=== PATIENT | male | born 1975 | race Caucasian/White ===

== ENCOUNTER 2017-11-23 16:45 | Emergency (ER) | payer MEDICAID, SELFPAY ==
[2017-11-23 16:46] VITALS: BP 141/93; PULSE 95; RESP 16; TEMP 36.8; O2SAT 99; BMI 25.1
--- NOTE | 2017-11-23 17:44 | EKG12_ITS ---
Test Reason : CP Blood Pressure : / mmHG Vent. Rate : 092 BPM Atrial Rate : 092 BPM P-R Int : 148 ms QRS Dur : 084 ms QT Int : 350 ms P-R-T Axes : 076 066 066 degrees QTc Int : 432 ms Normal sinus rhythm Normal ECG Confirmed by GABBIE LASSITER, JARON ([id number]), news assignment editor ELISHA VERNON ([id number]) on 11/27/2017 1:10:58 PM Referred By: DANNY/ROSALINO Confirmed By:JARON CARTWRIGHT MD
[2017-11-23] MEDS: Ipratropium/Albuterol Sulfate 3 ML AMPUL.NEB INHALATION (17:53)
[2017-11-23 17:55] VITALS: PULSE 90; RESP 16; O2SAT 98
[2017-11-23 18:18] LABS: Absolute Lymphocyte Count 2.37 X10^3/ul (0.83-4.51); Absolute Neutrophil Count 4.8 X10^3/uL (2.0-7.7); Basophil# 0.02 X10^3/uL; Basophil% 0.2 % (0-1); Eosinophils% 1.2 % (0-5); Hematocrit 43.4 % (40-54); Hemoglobin 14.5 g/dl (13.0-16.5); Lymphocyte # 2.37 X10^3/ul (4.0); Mean Corp Hgb Conc 33.4 g/gl (32-36); Mean Corpuscular Volume 98.6 fL (80-94); Mean Platelet Vol. 10.5 fl (6.2-12.0); Neutrophil # 4.77 X10^3/uL (2.7-7.7); Neutrophil % 58.5 % (47-70); Platelet Count 176 K/mm3 (150-450); RBC Distribution Width CV 13.6 % (11.6-14.6); White Blood Count 8.2 K/mm3 (4.4-11.0)
--- NOTE | 2017-11-23 18:20 | RAD_ITS ---
STUDY: X-RAY CHEST REASON FOR EXAM: Male, 42 years old. Chest pain TECHNIQUE: Frontal and lateral views of the chest COMPARISON: None. FINDINGS: The lungs are clear. There are no pleural effusions. There is no pneumothorax. The heart is normal in size. The visualized osseous structures are within normal limits. RAD/Chest PA and Lateral IMPRESSION: No acute thoracic pathology. Electronically Signed: Vidal Villagran, at 18:39 EDT Tel , Service support ,
[2017-11-23 18:21] VITALS: O2SAT 98
[2017-11-23 18:24] LABS: POSITIVE COUNT NO; POSITIVE DIFFERENTIAL NO; POSITIVE MORPHOLOGY NO
[2017-11-23 18:35] LABS: Anion Gap 6 (5-15); BUN 8 mg/dL (7-18); BUN/Creat Ratio 10.2 RATIO (10-20); Calcium,Total 9.3 mg/dL (8.5-10.1); Chloride 106 mmol/L (98-107); Creatinine, Serum 0.79 mg/dL (0.70-1.30); EST Glomerular Filtration Rate 114 mL/min (>60); Est Glom Filt Rate - Afr Amer 138 mL/min (>60); Estimated Creatinine Clearance 128.41 ml/min; Glucose 95 mg/dL (74-106); Potassium 4.3 mmol/L (3.5-5.1); Sodium Level 137 mmol/L (136-145)
--- NOTE | 2017-11-23 18:47 | ED.VISSUMM ---
- ER Visit Summary Date of Service: 11/23/17 Chief Complaint: Chest pain History of Present Illness: The patient is a 42 M who presents with chest pain. This is been occurring intermittently for the past 2 weeks. It began after he sat off flea bombs in his house and accidentally inhaled some of the fumes. He states afterwards his tongue felt weird. He had some tingling on his tongue. Since that time he has had intermittent episodes of chest heaviness. He states he feels like there is a sandbag sitting on her chest chest. He is a smoker. He also reports a cough and intermittently feeling mildly short of breath. Physical Examination: Afebrile vitals are unremarkable Moist mucous membranes Heart regular rate and rhythm No respiratory distress he does have some scattered expiratory wheezing Abdomen soft Extremities nontender without edema Alert Test Results: EKG shows sinus rhythm at a rate of 92. CBC BMP troponin all normal. Chest x-ray shows no acute pathology. Emergency Department Course and Treatment: Patient was given a DuoNeb aerosol here. His workup is unremarkable. I do not believe this is due to cardiac ischemia. This is likely due to bronchospasm and possibly component of pneumonitis as well. He was advised on supportive care. He will follow-up as needed as an outpatient. He was given a new albuterol inhaler. He was discharged. Treatment Plan: [] Disposition: Discharge Impression: Chest pain This note was generated with [employer] dictation software. It may contain incorrect words, spelling, and punctuation that were not noted in review of the chart prior to signing ED Disposition - Plan for ED Patient: Chief Complaint: Chest Pain Referrals: Care Physician,No Primary [Primary Care Provider] -
--- NOTE | 2017-11-23 18:49 | ED.DEP ---
ED Disposition - Plan for ED Patient: Chief Complaint: Chest Pain Instructions: ED Chest Pain NonCardiac Prescriptions: Albuterol Inhaler [Ventolin Hfa] 1 - 2 puff INHALATION Q4H PRN PRN #1 inhaler PRN Reason: Wheezing Referrals: Care Physician,No Primary [Primary Care Provider] -
[2017-11-23 19:12] VITALS: BP 139/89; PULSE 92; RESP 20
[2017-11-23 19:13] VITALS: BP 139/89; PULSE 92; RESP 20
== END 2017-11-23 19:14 | disposition home or self-care (01) ==
LOC: ED 17:56
PROVIDERS: Emergency Provider Emergency Medicine
DX: R07.9 Chest pain, unspecified (principal); F17.200 Nicotine dependence, unspecified, uncomplicated
CPT/HCPCS: 71046; 80048; 84484; 85025; 93005; 94640; 99285; J7030

== ENCOUNTER 2017-11-28 10:07 | Emergency (ER) | payer MEDICAID, SELFPAY ==
[2017-11-28 10:09] VITALS: BP 126/92; PULSE 74; RESP 16; TEMP 36.7; O2SAT 99; BMI 23.8
--- NOTE | 2017-11-28 10:31 | ED.DCSUM_ITS ---
- ER Visit Summary Date of Service: 11/28/17 Chief Complaint: Work release History of Present Illness: The patient is a 42 M who presents for medical clearance to return to work. Patient was seen here actually 2 weeks ago for dizziness and fatigue. Patient states that he released flea bombs in his house and accidentally inhaled some of that. Patient states she has been using his inhalers which have helped. Patient states he still has some intermittent generalized dizziness and fatigue. Patient states that he feels better today. Patient denies any shortness of breath. Patient still admits to occasional cough. Patient denies any sputum. 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 Physical Examination: Vital signs are stable. Patient is afebrile. Patient is in no acute distress. Oral mucosa is pink and moist. Neck is supple. Trachea is midline. There is no JVD noted. Heart was regular rate and rhythm. Lungs are clear and equal bilaterally. There is good respiratory effort noted. Abdomen is soft nontender. Cranial nerves II through XII are intact. There are no focal motor or sensory deficits noted. The remaining physical exam is within normal limits. Emergency Department Course and Treatment: Patient is medically cleared to return to work today. Patient was given a note for this. Patient was instructed to follow-up with a primary care physician in 7-10 days. Patient understood and was agreeable with the plan. All questions were answered. Disposition: Discharge home Impression: Return to work evaluation This note was generated with [employer] dictation software. It may contain incorrect words, spelling, and punctuation that were not noted in review of the chart prior to signing ED Disposition - Plan for ED Patient: Disposition: Home or Assisted Living Chief Complaint: General Illness Diagnosis: Return to work evaluation Instructions: ED Work Release Form Referrals: Care Physician,No Primary [Primary Care Provider] - Stephen Alonzo III, MD [STAFF PHYSICIAN] - Additional Instructions: You are able to return to work today.
== END 2017-11-28 10:46 | disposition home or self-care (01) ==
PROVIDERS: Emergency Provider Emergency Medicine
DX: R42 Dizziness and giddiness (principal); R53.83 Other fatigue; Z02.89 Encounter for other administrative examinations; Z72.0 Tobacco use
CPT/HCPCS: 99282

== ENCOUNTER → 2018-02-01 16:13 | Outpatient (CLI) | payer MEDICAID, SELFPAY | PROVIDERS: Referring Provider Physician Assistant; Visit Provider Physician Assistant | DX: J02.9 Acute pharyngitis, unspecified (principal) | CPT/HCPCS: 87081 ==

== ENCOUNTER 2019-11-14 08:32 | Emergency (ER) | payer MEDICAID, SELFPAY ==
[2019-11-14 08:33] VITALS: BP 141/97; PULSE 70; RESP 16; TEMP 36.3; O2SAT 100; BMI 21.6
--- NOTE | 2019-11-14 08:52 | ED.VIS.GEN ---
History of Present Illness Chief Complaint: Complaint Informant: Patient Narrative: 44-year-old male with no significant past medical history presents with concern for hematuria. States this began approximately a year and a half ago. States it is been intermittent over this period of time. States that 3 months ago he was seen at an urgent care and placed on antibiotics which did briefly resolve this issue. States he presents today because he has been passing clots over the past 48 hours. Patient also has pain in his lower abdomen. Denies any fever, chills, nausea, vomiting, penile discharge. No concern for STDs. Past Medical History - Allergies and Home Meds Allergies/Adverse Reactions: Allergies acetaminophen [From Vicodin] Adverse Reaction (Verified 11/14/19 08:35) Other hydrocodone [From Vicodin] Adverse Reaction (Verified 11/14/19 08:35) Other Primary Care Physician: Care Physician,No Primary [Primary Care Provider] - Past Medical History: None Surgical History: no surgical history Lives: Alone Smoking Status: Current every day smoker Alcohol: None Drugs: None Review of Systems General: Denies: Chills, Fever, Sweats Eyes: Denies: Visual changes - bilaterally, Diplopia ENT: Denies: Rhinorrhea, Sore throat Cardiovascular: Denies: Chest pain, Palpitations Respiratory: Denies: Dyspnea, Cough, Dyspnea on exertion Gastrointestinal: Denies: Abdominal pain, Nausea, Vomiting, Diarrhea, Melena, Hematochezia Genitourinary: Reports: Hematuria. Denies: Dysuria, Frequency Musculoskeletal: Denies: Back pain, Extremity Pain Skin: Denies: Rash, Wounds Neurological: Denies: Headache, Weakness, Numbness Physical Exam Vital Signs/Narrative: Vital Signs Temp Pulse Resp BP Pulse Ox 11/14/19 08:33 97.3 F L 70 16 141/97 H 100 Inital Vital Signs reviewed: Yes General: Well nourished, Well developed, No Acute Distress Head: Normocephalic, Atraumatic Eyes: Perrl, EOMI ENT: Moist mucous membranes, No rhinorrhea Neck: Supple, Nontender Cardiovascular: Regular rate, Regular rhythm, No murmurs Respiratory: No distress, CTA bilaterally, Chest nontender Abdomen: Soft, Nontender, Nondistended, Normal bowel sounds Back: Nontender, Normal Inspection Extremities: Nontender, No edema Skin: Normal color, No rash Neurological: Alert, Oriented x3, Cranial nerves II-XII grossly intact, Normal Strength, Normal Sensation Psychological: Normal affect, Normal Mood Diagnostic/Tx/Re-eval Laboratory Data 11/14/19 08:30 Urine Color Yellow Urine Clarity Sl. Cloudy Urine pH 7.0 Ur Specific [place] 1.010 Urine Protein 30 H Urine Glucose (UA) Normal Urine Ketones Negative Urine Occult Blood 250 H Urine Nitrite Positive H Urine Bilirubin Negative Urine Urobilinogen Normal Ur Leukocyte Esterase 25 H Urine RBC 25-50 SEEN Urine WBC 0-5 SEEN Ur Squamous Epith Cells 0-5 SEEN Urine Bacteria 1+ Urine Mucus 0 SEEN - Medical Decision Making Patient appears well nontoxic. Vital signs within normal limits. Urine shows evidence of infection with microscopic hematuria. Patient will be given Keflex 4 times daily for the next 7 days. Urine sent for culture. Given urologic follow-up. Asked to return for new or worsening symptoms. Patient agreeable and discharged home in stable condition. ED Disposition - Plan for ED Patient: Disposition: Home or Assisted Living Diagnosis: Cystitis Instructions: ED CYSTITIS Male Adult Prescriptions: Cephalexin [Keflex] 500 mg PO Q6 #40 cap Transmission Status: Pending to [id number] Referrals: Mady Bermudez DO [STAFF PHYSICIAN] - Aron Ron MD [STAFF PHYSICIAN] - As soon as possible
[2019-11-14 09:04] LABS: Mucous, Urine 0 SEEN /hpf (<or=2+)
[2019-11-14 09:09] VITALS: BP 141/97; PULSE 70; RESP 16; TEMP 36.3; O2SAT 100
[2019-11-14 09:09] LABS: Color, Urine Yellow (Yellow); Glucose, Dipstick Normal (Normal); Ketone-Dipstick Negative (Negative); Leukocyte Esterase-Dipstick 25 /ul (Negative); Nitrite-Dipstick Positive (Negative); Occult Blood-Urine 250 /ul (Negative); Protein-Dipstick 30 mg/dl (Negative); Urine Bilirubin Dipstick Negative (Negative); Urine Clarity Sl. Cloudy (Clear); Urine Urobilinogen Normal (Normal)
[2019-11-14 09:15] LABS: Bacteria 1+ /hpf (None Seen); Red Blood Cells-Urine 25-50 SEEN /hpf (0-5); Squamous Epithelial Cells - UA 0-5 SEEN /hpf (0-5); White Blood Cells 0-5 SEEN /hpf (0-5)
[2019-11-14 09:37] VITALS: PULSE 78; RESP 16; O2SAT 97
== END 2019-11-14 09:42 | disposition home or self-care (01) ==
LOC: ED 09:29
PROVIDERS: Emergency Provider Emergency Medicine
DX: N30.90 Cystitis, unspecified without hematuria (principal); F17.200 Nicotine dependence, unspecified, uncomplicated
CPT/HCPCS: 81001; 99282

== ENCOUNTER 2020-05-12 12:33 | Emergency (ER) | payer MEDICAID, SELFPAY ==
[2020-05-12 12:34] VITALS: BP 131/80; PULSE 90; RESP 16; TEMP 36.1; O2SAT 98; BMI 23.0
[2020-05-12 13:01] LABS: Bacteria 0 SEEN /hpf (None Seen); Mucous, Urine 0 SEEN /hpf (<or=2+); Red Blood Cells-Urine 0 SEEN /hpf (0-5); Squamous Epithelial Cells - UA 0 SEEN /hpf (0-5); White Blood Cells 0 SEEN /hpf (0-5)
[2020-05-12 13:04] LABS: Absolute Lymphocyte Count 1.01 X10^3/uL (0.83-4.51); Absolute Neutrophil Count 4.5 X10^3/uL (2.0-7.7); Basophil# 0.04 X10^3/uL; Basophil% 0.6 % (0-1); Eosinophil# 0.08 X10^3/uL; Eosinophils% 1.2 % (0-5); Hematocrit 42.8 % (40-54); Hemoglobin 13.9 g/dL (13.0-16.5); Lymphocyte # 1.01 X10^3/ul (4.0); Lymphocyte % 15.4 % (19-41); Mean Corp Hgb Conc 32.5 g/dL (32-36); Mean Corpuscular Hgb 30.8 pg (27.0-32.0); Mean Corpuscular Volume 94.7 fL (80-94); Mean Platelet Vol. 9.3 fl (6.2-12.0); Monocyte# 0.95 X10^3/uL; Monocyte% 14.5 % (0-10); NRBC Flagged by Analyzer 0 % (0-5); Neutrophil # 4.47 X10^3/uL (2.7-7.7); Platelet Count 222 K/mm3 (150-450); RBC Distribution Width CV 12.5 % (11.6-14.6); RBC Distribution Width SD 43.6 fl (35.1-43.9); Red Blood Count 4.52 M/mm3 (4.6-6.2); White Blood Count 6.6 K/mm3 (4.4-11.0)
--- NOTE | 2020-05-12 13:05 | ED.VISSUMM ---
- ER Visit Summary Date of Service: 05/12/20 Chief Complaint: [Abdominal pain] History of Present Illness: The patient is a 44 M [presents the emergency department complaint of abdominal pain that started about 4 days ago. Patient states that he was at work pulling a heavy cart when he gave it again he felt the discomfort in his abdomen and tightness. Patient states the pains are getting worse last evening. He describes it as in his lower abdomen and currently only rates it about a 3 out of 10. Patient states the pain usually worse at night. He has had no fever other than he checked his temperature last night it was 100.0 but his told him that the batteries were low in the thermometer. Had no chills or sweats. No cough no COVID-19 exposures. He denies any blood in stool or black tarry stools. Denies any hematuria currently but he has had it in the past.] Patient states that he had some discoloration in his bellybutton that he was also concerned about. Physical Examination: [HEENT-PERRLA, EOMI. Cranial nerves II through XII grossly intact. TMs clear. Mucous membranes moist. No adenopathy. Cardiovascular-regular rate and rhythm without murmur or ectopy Lungs-clear to auscultation, chest wall stable without crepitus or subcu emphysema Abdomen-normoactive bowel sounds, soft. Patient has tenderness diffusely over the lower abdomen to the right lower quadrant, suprapubic region and left lower quadrant. No obvious hernias palpated. Extremities-intact ?4, normal range of motion, normal pulses, atraumatic] Test Results: [CBC with differential obtained was normal. Chemistries normal. Urinalysis normal. CT flank showed nothing acute. The appendix was visualized and was normal. There is no evidence of kidney stones. No hernias noted.] Emergency Department Course and Treatment: [IV line established on arrival.] Treatment Plan: [Advised use ibuprofen or Tylenol for discomfort. I suspect he likely has an abdominal wall strain. Patient will be referred to primary care physician refrigeration brazer/solderer for no doc for follow-up in 5 to 7 days. Patient does not want to file this under workman's comp because he is not sure if it is related.] Disposition: [Discharged home in stable condition] Impression: [Abdominal pain Abdominal wall strain] This note was generated with [employer] dictation software. It may contain incorrect words, spelling, and punctuation that were not noted in review of the chart prior to signing ED Disposition - Plan for ED Patient: Referrals: Care Physician,No Primary [Primary Care Provider] -
[2020-05-12 13:06] LABS: Color, Urine Yellow (Yellow); Glucose, Dipstick Normal (Normal); Ketone-Dipstick Negative (Negative); Leukocyte Esterase-Dipstick Negative /ul (Negative); Nitrite-Dipstick Negative (Negative); Occult Blood-Urine Negative /ul (Negative); Protein-Dipstick Negative (Negative); Urine Bilirubin Dipstick Negative (Negative); Urine Clarity Clear (Clear); Urine Urobilinogen Normal (Normal)
[2020-05-12 13:16] LABS: Anion Gap 5 (5-15); BUN 11 mg/dL (7-18); Calcium,Total 8.6 mg/dL (8.5-10.1); Chloride 106 mmol/L (98-107); Creatinine, Serum 0.92 mg/dL (0.70-1.30); EST Glomerular Filtration Rate 95 mL/min (>60); Est Glom Filt Rate - Afr Amer 115 mL/min (>60); Estimated Creatinine Clearance 107.34 ml/min; Glucose 88 mg/dL (74-106); Potassium 4.1 mmol/L (3.5-5.1); Sodium Level 139 mmol/L (136-145)
--- NOTE | 2020-05-12 14:08 | CT_ITS ---
STUDY: CT ABDOMEN AND PELVIS WITHOUT CONTRAST REASON FOR EXAM: Male, 44 years old. ABDOMINAL PAIN AFTER MOVING HEAVY OBJECT RADIATION DOSAGE (If Supplied By Facility): CTDIvol = ( 6.23 ) mGy, DLP = ( 337.54 ) mGycm TECHNIQUE: Transaxial images were obtained from the dome of the diaphragm to the symphysis pubis without oral contrast, and without intravenous contrast. Sagittal and coronal images were reconstructed. Individualized dose optimization techniques were used for this CT. COMPARISON: None. FINDINGS: The visualized lung bases are unremarkable. The visualized portions of the heart are within normal limits. Normal liver. Normal gallbladder and extrahepatic biliary system. Normal spleen. Normal pancreas. Normal bilateral adrenal glands. Normal right kidney. Normal left kidney. Normal visualized stomach. Normal small intestine. Normal colon. The appendix is visualized and appears normal. Mild scattered atherosclerosis. Normal inferior vena cava. Normal retroperitoneum. Normal urinary bladder. Normal abdominal wall. Normal osseous structures. CT/Abdomen/Pelvis without Cont IMPRESSION: 1. No hydronephrosis or urinary tract calcifications. Electronically Signed: Wesley Slade MD ([place]) at 14:33 EST , Service support ,
--- NOTE | 2020-05-12 14:37 | ED.DEP ---
ED Disposition - Plan for ED Patient: Instructions: ED Unknown Causes of Abdominal ..., ED Muscle Strain, Abdomen Referrals: Care Physician,No Primary [Primary Care Provider] - Ruth Ching MD [STAFF PHYSICIAN] - 3-5 Days
== END 2020-05-12 14:46 | disposition home or self-care (01) ==
PROVIDERS: Emergency Provider Emergency Medicine
DX: R10.9 Unspecified abdominal pain (principal); S39.011A Strain of muscle, fascia and tendon of abdomen, initial encounter; X50.0XXA Overexertion from strenuous movement or load, initial encounter
CPT/HCPCS: 74176; 80048; 81001; 85025; 99283; A4216